=== PATIENT | male | born 1995 | race Caucasian/White ===

== ENCOUNTER 2020-09-05 12:08 | Emergency (ER) | payer OTHER ==
[~2020-09-05] VITALS: Ht 172.7 cm; Wt 90.7 kg
[2020-09-05 12:46] LABS: ABSOLUTE BASOPHILS 0.1 thou/uL (0.0-0.2); ABSOLUTE EOSINOPHILS 0.2 thou/uL (0.0-0.7); ABSOLUTE LYMPHOCYTES 1.3 thou/uL (0.8-5.3); ABSOLUTE MONOCYTES 0.3 thou/uL (0.0-1.2); ABSOLUTE NEUTROPHILS 3.5 thou/uL (1.6-8.1); BASOPHILS 1.8 %; EOSINOPHILS 3.4 %; HEMATOCRIT 44.8 % (42.0-52.0); HEMOGLOBIN 15.7 gm/dL (14.0-18.0); LYMPHOCYTES 24.6 %; MCHC 34.9 g/dL (28.0-37.0); MCV 97.4 fL (80.0-100.0); MONOCYTES 4.8 %; MPV 7.6 fl. (7.2-11.1); NUCLEATED RBCS 0 /100WBC; PLATELET COUNT* 319 thou/uL (150-400); POLYS 65.4 %; RDW-CV 13.1 % (10.5-14.5); WBC 5.3 thou/uL (4.0-11.0)
[2020-09-05 12:56] LABS: URINE BILIRUBIN NEGATIVE (Negative); URINE BLOOD NEGATIVE (Negative); URINE CLARITY CLEAR; URINE COLOR YELLOW; URINE GLUCOSE-RANDOM NEGATIVE (Negative); URINE KETONES NEGATIVE (Negative); URINE LEUKOCYTES NEGATIVE (Negative); URINE NITRITE NEGATIVE (Negative); URINE PROTEIN NEGATIVE (Negative); URINE UROBILINOGEN 0.2 E.U./dl (0.2-1.0)
[2020-09-05 13:00] LABS: CALCIUM 9.4 mg/dL (8.5-10.1); CREATININE 0.7 mg/dL (0.6-1.3); POTASSIUM 3.9 mmol/L (3.5-5.1)
[2020-09-05 13:04] LABS: ALBUMIN 4.1 g/dL (3.4-5.0); TOTAL BILIRUBIN 0.2 mg/dL (<0.1-1.0)
[2020-09-05 13:21] VITALS: BP 154/93
== END 2020-09-05 13:23 | disposition home or self-care (01) ==
LOC: M.ERS 12:08
PROVIDERS: Physician Assistant
DX: R60.0 Localized edema (principal); F17.210 Nicotine dependence, cigarettes, uncomplicated